=== PATIENT | male | born 1950 | race Caucasian/White ===

== ENCOUNTER → 2017-12-16 | Outpatient (CLI) | payer BC | LOC: M SLEEP 19:50 | DX: G47.33 Obstructive sleep apnea (adult) (pediatric) (principal) | CPT/HCPCS: 95810 ==

== ENCOUNTER → 2018-07-21 | Outpatient (CLI) | payer BC ==
--- NOTE | 2018-07-21 11:46 | REP ---
GALLBLADDER EJECTION FRACTION: Following the intravenous administration of 6.6 mCi of technetium 99m mebrofenin, initial images were attempted but the patient became extremely claustrophobic. We adjusted the protocol for the exam to obtain limited images of the right upper quadrant and evaluate gallbladder ejection fraction. Delayed static images are performed at the 1 hour tara. There is gallbladder activity identified. There is no biliary to bowel transit at the 1 hour tara. 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 At that point, the patient ingested Ensure Enlive and an additional set of static images are performed at the 2 hour tara. There is biliary to bowel transit as well as gallbladder activity identified at that point. Gallbladder ejection fraction is calculated comparing the gallbladder activity at the 1 hour tara to the activity at the 2 hour tara. The estimated gallbladder ejection fraction is 67.9% which is normal. Electronically Signed by Kendall Wen MD 07/21/2018 04:03 P
== END ==
LOC: M RAD 07:23
PROVIDERS: ATTEND Internal Medicine Gastroenterology
DX: R10.11 Right upper quadrant pain (principal); K76.0 Fatty (change of) liver, not elsewhere classified
CPT/HCPCS: 78227; A9537; J2805